=== PATIENT | female | born 2000 | race Two or more races ===

== ENCOUNTER 2020-06-24 15:38 | Emergency (ER) | payer OTHER ==
[2020-06-24 15:42] VITALS: BP 103/58; PULSE 68; TEMP 98.4; BMI 21.9
[2020-06-24] MEDS ORDERED: KETOROLAC TROMETHAMINE 30 MG/1 ML VIAL IM ONE (16:31)
[2020-06-24] MEDS ORDERED: CYCLOBENZAPRINE HCL 10 MG TABLET (FP) PO ONE (16:32)
[2020-06-24] MEDS ORDERED: KETOROLAC TROMETHAMINE 30 MG/1 ML VIAL ONE (17:08)
[2020-06-24] MEDS ORDERED: CYCLOBENZAPRINE HCL 10 MG TABLET (FP) ONE (17:08)
[2020-06-24 17:32] LABS: URINE APPEARANCE CLEAR; URINE BILIRUBIN NEGATIVE (NEGATIVE); URINE COLOR YELLOW; URINE GLUCOSE (UA) NEGATIVE (NEGATIVE); URINE KETONE NEGATIVE (NEGATIVE); URINE LEUK ESTERASE NEGATIVE (NEGATIVE); URINE NITRITE NEGATIVE (NEGATIVE); URINE PROTEIN NEGATIVE (NEGATIVE)
[2020-06-24 17:34] LABS: HCG,QUALITATIVE URINE Negative
== END 2020-06-24 17:40 | disposition home or self-care (01) ==
LOC: JERFT 15:38
PROC: 3E0233Z Introduction of Anti-inflammatory into Muscle, Percutaneous Approach (ICD-10-PCS; principal; 2020-06-24)
DX: M54.5 Low back pain (principal)
CPT/HCPCS: 81003; 84703; 99284-25